=== PATIENT | male | born 1990 | race Caucasian/White ===

== ENCOUNTER 2016-05-05 08:40 | Inpatient (IN) | payer OTHER ==
--- NOTE | ~2016-05-05 | A ---
[facility] Nutrition Therapy DATE: 05/06/16 Patient: MARISA YEBOAH Physician: SARAH Address: [address] Room/Bed: [address], Zip: [place] [address] Admit Date: 05/05/16 Date of : [birth year] Height: 5 11 Weight: [id number] NUTRITIONAL ASSESSMENT: REASON: 2 points malnutrition risk score re: unintentional weight loss and chewing/swallowing difficulties Admitting Dx: 25 y/o male undergoing heroin detox PMH: Hep C, opioid abuse, 1 ppd smoker, Bipolar disorder, ADHD Anthropometrics: Ht: 71", Wt: 159 lbs, IBW: 172 lbs, 92% IBW, BMI: 22 (normal) Labs: No labs available Meds: Loperamide, Milk of Mg, Mag-Al, Phenergan/zofran, MVI, Thiamine, Folic acid I/O & Bowel function: No issues Assessment: Chart reviewed, events noted. See admitting dx and PMH above. Patient is currently undergoing heroin detox with some nausea and abdominal cramps. He has been unemployed since 04/02/16 and has his own apartment which he is in jeopardy losing, is accompanied by his mother during admission yesterday. No diet order in place as of yet. Patient reports poor appetite upon admission weight a weight loss of an unknown amount, BMI still normal. No past weights available for comparison. He scored 2 points on the malnutrition risk score for weight loss and chewing/swallowing difficulty, but no evidence of this difficulty. See RD recs below. Dx: Unintentional weight loss r/t drug abuse AEB malnutrition risk score, weight loss of unknown amount reported. Intervention: See recs below Monitoring, Evaluation and Goals: 1. Adequate oral intake > 50-75% of meals. 2. Prevent unintentional weight loss. 3. No s/s of chewing/swallowing difficulties. Monitor: Per protocol, criteria to determine if above goals met Recommendations: 1. Please put diet order in [facility] per MD, RD suggests regular diet. Encourage adequate oral intake, if desired add large portion entree to diet order and RD will approve for [facility] Nutrition Therapy DATE: 05/06/16 Patient: MARISA YEBOAH Physician: SARAH Address: [address] Room/Bed: [address], Zip: [place] [address] Admit Date: 05/05/16 Date of : [birth year] Height: 5 11 Weight: 158 72.458067 lunch and dinner. 2. Provide 3 nourishing meals per day. If PO intake is < 50% of meals please order Ensure BID (available in chocolate or vanilla, requires MD order). 3. If the patient has any s/s of chewing/swallowing difficulties suggest placing him on a mechanical soft diet and B2B OUTSIDE SALES REPRESENTATIVE eval. 4. Please weigh q 3 days for monitoring purposes and notify RD if weight is trending down. 5. Please consult RD with any further nutritional needs. Mild nutrition risk Respectfully, Doris Valadez, JOLANTA, LD Food and Nutritional Services [facility] cc: client file
--- NOTE | ~2016-05-05 | HP ---
Unit #: [id number] #: [id number] Patient: LISANDRO YEBOAH [id number] [place] [address] [id number] MR#: [id number] NAME: LISANDRO YEBOAH ROOM: P178 Age: 25 Sex: M Admission Date: 05/05/2016 : 1990 Attending Physician: Anand Bermudez M.D. Admitting Physician: Anand Bermudez M.D. Primary Care Physician: Tito Doctor Not In System HISTORY AND PHYSICAL HISTORY OF PRESENT ILLNESS Lisandro is a 25 year old admitted to [facility] because of his illicit drug use. He shoots heroin. PAST MEDICAL HISTORY 1. Long history of opioid abuse to include IV heroin and methamphetamine. 2. Hepatitis C. PAST SURGICAL HISTORY Nothing reported. ALLERGIES No known drug allergies. SOCIAL HISTORY Smokes one pack per day. Denies alcohol. Admits to using marijuana, heroin and amphetamines on a daily basis. FAMILY HISTORY Medically noncontributory. REVIEW OF SYSTEMS CONSTITUTIONAL: No fever or chills. HEENT: Denies any sore throat, ear pain or runny nose. CARDIOVASCULAR: Denies chest pain, irregular heart rhythm or palpitations. CHEST: Denies shortness of breath or cough. No hemoptysis. GASTROINTESTINAL: Denies nausea, vomiting, diarrhea or chronic constipation. ENDOCRINE: Denies history of increased thirst or urination. No recent significant weight loss or gain. GENITOURINARY: Denies dysuria, frequency, or hematuria. SKIN: Denies any rashes. HEMATOLOGIC: Denies history of increased bleeding or bruising. MUSCULOSKELETAL: Denies any hot, swollen joints. No generalized muscle pain. NEUROLOGIC: Denies problems with vision or speech. No frequent, severe headaches. No numbness, tingling or weakness in any extremities. Denies loss of bladder or bowel control. CURRENT MEDICATIONS Detox protocol Unit #: [id number] #: [id number] Patient: LISANDRO YEBOAH PHYSICAL EXAMINATION GENERAL: Alert, well-nourished, in no apparent distress. VITAL SIGNS: Blood pressure 112/66, heart rate 72, respirations 16, temperature 98.6. WEIGHT: 159 pounds. HEIGHT: 5'11". SKIN: Warm and dry without rash or lesion. HEENT: Normocephalic. TMs not viewed. Oral and nasal passages clear. Conjunctivae clear. Pupils equal, round and reactive to light and accommodation. Extraocular movements intact. NECK: Supple without lymphadenopathy or thyromegaly. HEART: Regular rate and rhythm without murmur. LUNGS: Clear. ABDOMEN: Soft, nontender. : Not done. EXTREMITIES: No evidence of cyanosis, clubbing or edema. Moves all extremities without focal deficit. NEUROLOGICAL: Grossly within normal limits. Cranial Nerves: II: Visual garcia are intact. III, IV AND : Extraocular movements are intact. Pupils are equal, round and reactive to light. V: Facial sensation is grossly normal. VII: Facial movements and expression are normal. VIII: Auditory acuity grossly intact. IX, X: Uvula is midline. Phonation is normal. XI: Patient shrugs shoulders and turns head normally. XII: Tongue protrudes in the midline. Sensory and Motor Function: Sensory and motor sensation is grossly normal. Motor: moves all extremities well. Coordination: Gait is normal. Deep Tendon Reflexes: Intact. IMPRESSION Psychiatric admission RECOMMENDATIONS PSYCHIATRIC: Per psychiatrist. MEDICAL: I see no contraindications to participating in facility's activities. MEDICAL PROGNOSIS Good. MEDICAL CONDITION Stable. Dictated by... Atul MckinneyAJimmy. for Yvette eJffries/ady TD: 05/06/2016 03:24 JOB #: [id number] Unit #: [id number] #: [id number] Patient: LISANDRO YEBOAH HISTORY AND PHYSICAL X Ade Mabry X HISTORY AND PHYSICAL
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
--- NOTE | ~2016-05-05 | PA ---
Unit #: [id number] #: [id number] Patient: MARISA YEBOAH [id number] [facility] [address] [place] [address] [id number] I MR#: [id number] NAME: MARISA YEBOAH ROOM: P178 Age: 25 Sex: M Admission Date: 05/05/2016 : 1990 Date of Assessment: 05/05/2016 Attending Physician: Anand Bermudez M.D. Admitting Physician: Anand Bermudez M.D. Primary Care Physician: Generic Doctor Not In System PSYCHIATRIC ASSESSMENT IDENTIFYING INFORMATION The patient is a 25-year-old white male admitted with a history of opioid addition. CHIEF COMPLAINT None given. INFORMANT(S) Chart, the patient could not be aroused for interview. HISTORY OF PRESENT ILLNESS The patient is a 25-year-old white male who reports a history of intravenous heroin abuse. The patient reports that he is using one-half gram to a gram daily intravenously. The patient was reportedly diagnosed with a bipolar spectrum disorder at the age of 16 but is presently on no prescribed psychotropic medications. The patient also has been abusing intravenous methamphetamine. He had reported that he had maintained sobriety for approximately two years but had recently relapsed and reports that this was a "stupid mistake." The patient was hearing with reporting auditory hallucinations with thoughts of suicide but denied any specific plan regarding suicidal or homicidal ideation at the time of admission. PAST PSYCHIATRIC HISTORY As noted previously the patient was reportedly diagnosed with bipolar spectrum disorder at the age of 16. He is currently on no prescribed psychotropic medications however. PAST MEDICAL HISTORY Noncontributory. MEDICATIONS None. ALLERGIES None. FAMILY HISTORY Noncontributory SOCIAL HISTORY The patient is presently unemployed. He reports daily use of cannabis, amphetamines and opioids Unit #: [id number] #: [id number] Patient: MARISA YEBOAH MENTAL STATUS EXAMINATION At this time reveals the patient to be a soundly sleeping white male who in spite of multiple attempts cannot be aroused for interview. ASSETS AND LIABIITIES ASSETS: To be assessed. LIABILITIES: Lack of resources. DIAGNOSTIC IMPRESSION 1. Opioid use disorder, 2. Methamphetamine use disorder 3. Bipolar spectrum disorder by history PSYCHIATRIC PLAN/TREATMENT GOALS The patient remains hospitalized for safety and stabilization. A routine detoxification protocol for opioids has been initiated and suicide precautions are in place. The patient will participate in appropriate jason and milieu activities with followup to place through the auspices of community mental health resources following an estimate length of stay in the hospital of five to seven days. Dictated by... Anand Bermudez M.D. LJ/ady TD: 05/05/2016 22:48 JOB #: [id number] PSYCHIATRIC ASSESSMENT X Anand Bermudez MD X PSYCHIATRIC ASSESSMENT
[2016-05-06 09:34] LABS: BASOPHIL% 0.3 % (0-2.5); EOSINOPHIL# 0.2 X10e3 (0-0.7); EOSINOPHIL% 2.6 % (0.0-7.0); HEMATOCRIT 47.4 % (38.0-50.0); HEMOGLOBIN 15.9 gm/dL (13.0-16.0); LYMPHOCYTE# 1.9 X10e3 (1.0-3.5); MEAN CELL VOLUME 91.3 FL (83-96); MEAN CORPUSCULAR HEMOGLOBIN 30.6 PG (28-34); MEAN CORPUSCULAR HGB CONC 33.5 g/dL (30-36); MONOCYTE# 0.6 X10e3 (0-1.0); MONOCYTE% 7.6 % (3.0-12.0); NEUTROPHIL# 5.4 X10e3 (1.5-7.1); NEUTROPHIL% 66.5 % (40-75); PLATELET COUNT 208 X10e3 (140-420); RED BLOOD COUNT 5.19 X10e (3.90-5.60); WHITE BLOOD COUNT 8.2 X10e3 (4.0-10.5)
[2016-05-06 09:37] LABS: DIFF IND NO
[2016-05-06 10:02] LABS: THYROID STIMULATING HORMONE 0.27 uIU/ml (0.34-5.60)
[2016-05-06 10:09] LABS: FREE THYROXIN (T4) 0.78 ng/dL (0.58-1.64)
[2016-05-06 10:24] LABS: ALBUMIN SERUM 3.8 g/dL (3.5-5.0); ALKALINE PHOSPHATASE 82 U/L (32-92); ALT (SGPT) 72 U/L (10-40); AST (SGOT) 46 U/L (10-42); BILIRUBIN,TOTAL 0.9 mg/dL (0.2-2.0); BLOOD UREA NITROGEN 11 mg/dL (9-23); BUN/CREATININE RATIO 15.71; CALCIUM SERUM 9.4 mg/dL (8.4-10.2); CARBON DIOXIDE 29 mmol/L (22-31); CHLORIDE 104 mmol/L (100-111); CREATININE SERUM 0.7 mg/dL (0.6-1.4); GLOM FILT RATE Estimated ABOVE60 mL/min (>60); GLUCOSE FASTING 92 mg/dL (70-110); POTASSIUM 4.7 mmol/L (3.5-5.1); PROTEIN TOTAL SERUM 6.6 g/dL (6.0-8.3); SODIUM 143 mmol/L (135-145)
[2016-05-06 12:33] LABS: URINE APPEARANCE CLOUDY; URINE BILIRUBIN NEG (NEG); URINE BLOOD NEG (NEG); URINE COLOR YELLOW; URINE GLUCOSE NEG (NEG); URINE KETONE NEG (NEG); URINE LEUKOCYTE ESTERASE NEG (NEG); URINE NITRATE NEG (NEG); URINE PH 8.5 (5-8); URINE PROTEIN NEG (NEG); URINE UROBILINOGEN 0.2 MG/DL (NEG)
[2016-05-06 12:39] LABS: AMPHETAMINE POS (NEG); BARBITURATES NEG (NEG); BENZODIAZEPINES NEG (NEG); COCAINE NEG (NEG); MARIJUANA NEG (NEG); OPIATES POS (NEG); TRICYCLIC ANTIDEPRESSANTS NEG (NEG); U METHADONE NEG (NEG)
== END 2016-05-07 13:00 | disposition home or self-care (01) | DRG 897 ==
LOC: P1E 08:40
PROVIDERS: Specialist
PROC: HZ2ZZZZ Detoxification Services for Substance Abuse Treatment (ICD-10-PCS; principal; 2016-05-05)
DX: F11.20 Opioid dependence, uncomplicated (principal); F15.20 Other stimulant dependence, uncomplicated; F31.89 Other bipolar disorder; B19.20 Unspecified viral hepatitis C without hepatic coma; F17.200 Nicotine dependence, unspecified, uncomplicated
CPT/HCPCS: 80053; 80307; 81003; 84439; 84443; 85025; 86592; 87806